=== PATIENT | male | born 1985 | race Two or more races ===

== ENCOUNTER → 2023-10-30 | Emergency (ER) | payer OTHER ==
[~2023-10-30] VITALS: Ht 195.6 cm; Wt 70.3 kg
[~2023-10-30] MED LIST: ISOSORBIDE DINI30 MG PO; PLAVIX75 MG PO
== END | disposition home or self-care (01) ==
LOC: ER 16:53
DX: S91.311A Laceration without foreign body, right foot, initial encounter (principal); X58.XXXA Exposure to other specified factors, initial encounter; Y93.89 Activity, other specified; Y92.89 Other specified places as the place of occurrence of the external cause; Y99.8 Other external cause status

== ENCOUNTER 2024-07-11 22:32 | Emergency (ER) | payer OTHER ==
[~2024-07-11] VITALS: Ht 195.6 cm; Wt 77.1 kg
[2024-07-11 22:47] VITALS: BP 104/60; O2SAT 98
[2024-07-11] MEDS ORDERED: CEFTRIAXONE SODIUM 1,000 MG VIAL IJ STA (23:35)
[2024-07-11] MEDS ORDERED: HYDROCODONE/CHLORPHEN P-STIREX 5 ML ML PO STA (23:35)
== END 2024-07-11 23:48 | disposition home or self-care (01) ==
LOC: ER 22:34
DX: J06.9 Acute upper respiratory infection, unspecified (principal); Z91.013 Allergy to seafood

== ENCOUNTER 2024-10-18 23:00 | Emergency (ER) | payer OTHER ==
[~2024-10-18] VITALS: Ht 195.6 cm; Wt 74.8 kg
[2024-10-18 23:07] VITALS: BP 91/64; O2SAT 98
== END 2024-10-19 05:47 | disposition home or self-care (01) ==
LOC: ER 23:02
DX: S40.012A Contusion of left shoulder, initial encounter (principal); W10.8XXA Fall (on) (from) other stairs and steps, initial encounter; Y93.89 Activity, other specified; Y92.89 Other specified places as the place of occurrence of the external cause; Y99.8 Other external cause status; Z91.013 Allergy to seafood